=== PATIENT | male | born 1955 | race Caucasian/White ===

== ENCOUNTER 2017-07-15 11:06 | Emergency (ER) | payer SELFPAY ==
[~2017-07-15] VITALS: Ht 172.7 cm; Wt 136.4 kg
[2017-07-15 11:08] VITALS: BP 196/91; PULSE 80; RESP 16; TEMP 97.6; O2SAT 96
[2017-07-15] MEDS ORDERED: ASPI81TA23 PO (11:31)
[2017-07-15] MEDS ORDERED: GLIM2TAB PO (11:31)
[2017-07-15] MEDS ORDERED: ATOR40TA16 PO (11:31)
[2017-07-15] MEDS ORDERED: VENL100T PO ×2 (11:31)
[2017-07-15] MEDS ORDERED: AMLO5TAB2 PO (11:31)
[2017-07-15] MEDS ORDERED: METH36 PO (11:31)
[2017-07-15] MEDS ORDERED: ABIL10TA8 PO (11:31)
[2017-07-15] MEDS ORDERED: BUPR150CR PO (11:31)
[2017-07-15] MEDS ORDERED: LITH150C PO (11:31)
[2017-07-15] MEDS ORDERED: NEXI20CA PO (11:31)
[2017-07-15] MEDS ORDERED: METF500T PO (11:31)
[2017-07-15] MEDS ORDERED: BRIL90TA PO (11:31)
[2017-07-15] MEDS ORDERED: LEVEMIR SQ (11:31)
[2017-07-15] MEDS ORDERED: METO100T PO (11:31)
[2017-07-15] MEDS ORDERED: LOSA100T PO (11:31)
[2017-07-15] MEDS ORDERED: DOXY100C PO (12:13)
--- NOTE | 2017-07-15 12:13 | PD ---
HPI Chief Complaint: Laceration/Skin Injury Time Seen by Provider: 11:32 Travel History International Travel<30 days: No Contact w/Intl Traveler<30days: No Traveled to known affect area: No History of Present Illness HPI 61-year-old male here with a laceration to his right second toe. [place] cut the foot. He has mild discomfort in site of the laceration. He can freely wiggle the toes. Denies altered sensation. Tetanus immunization is up-to-date. Symptom severity is moderate. No aggravating or alleviating factors. PFSH Past Medical History Hx Anticoagulant Therapy: Yes (brilinta) Anxiety: Yes Depression: Yes Cardiac Catheterization: Yes High Cholesterol: Yes Coronary Artery Disease: Yes Diabetes: Yes Patient Takes Glucophage: Yes (07-15-17 0800) Diminished Hearing: No GERD: Yes Hypertension: Yes Neurologic: Yes Psychiatric: Yes Immunizations Current: Yes Tetanus Vaccination: < 5 Years Influenza Vaccination: Yes Past Surgical History Coronary Stent: Yes Social History Alcohol Use: Yes (occ) Tobacco Use: No Substance Use: No Allergies-Medications (Allergen,Severity, Reaction): Coded Allergies: No Known Allergies (Verified Allergy, Unknown, 07/15/17) Reported Meds & Prescriptions Reported Meds & Active Scripts Active Doxycycline Hyclate 100 Mg Cap 100 Mg PO BID Reported Britt Carbonate 150 Mg Cap 150 Mg PO BID Levemir Inj (Insulin Detemir) 1,000 unit/ 10 ML Vial 50 Units SQ BID Do not mix with any other Insulin. Brilinta (Ticagrelor) 90 Mg Tab 90 Mg PO BID Glimepiride 2 Mg Tab 2 Mg PO DAILY Take with breakfast or first main meal Nexium (Esomeprazole DR) 20 Mg Capdr 20 Mg PO DAILY Amlodipine (Amlodipine Besylate) 5 Mg Tab 5 Mg PO DAILY Atorvastatin (Atorvastatin Calcium) 40 Mg Tab 40 Mg PO HS Metoprolol Tartrate 100 Mg Tab 100 Mg PO DAILY Metformin (Metformin HCl) 500 Mg Tab 500 Mg PO DAILY With a meal Losartan (Losartan Potassium) 100 Mg Tab 100 Mg PO DAILY Aspirin EC (Aspirin) 81 Mg Tabdr 81 Mg PO DAILY Abilify (Aripiprazole) 10 Mg Tab 10 Mg PO DAILY Effexor (Venlafaxine HCl) 100 Mg Tab 100 Mg PO PM Effexor (Venlafaxine HCl) 100 Mg Tab 200 Mg PO AM Concerta (Methylphenidate HCl) 36 Mg Micah 72 Mg PO DAILY Wellbutrin SR 12 HR (Bupropion HCl) 150 Mg Tab 150 Mg PO Q12HR Review of Systems Except as stated in HPI: all other systems reviewed are Neg General / Constitutional: No: Fever Eyes: No: Visual changes HENT: No: Headaches Cardiovascular: No: Chest Pain or Discomfort Respiratory: No: Shortness of Breath Gastrointestinal: No: Abdominal Pain Genitourinary: No: Dysuria Physical Exam Narrative GENERAL: Alert and well-appearing 61-year-old male SKIN: Warm and dry. HEAD: Normocephalic. EYES: No scleral icterus. No injection or drainage. NECK: Supple, trachea midline. No JVD or lymphadenopathy. CARDIOVASCULAR: Regular rate and rhythm without murmurs, gallops, or rubs. RESPIRATORY: Breath sounds equal bilaterally. No accessory muscle use. GASTROINTESTINAL: Abdomen soft, non-tender, nondistended. MUSCULOSKELETAL: No cyanosis, or edema. Right foot: 1.5 cm laceration to the plantar aspect of the second digit. No tendon injury identified. No foreign body identified. Bleeding is well controlled. Able to flex and extend the toe without difficulty. Normal sensation distally. Brisk cap refill. Data Data Last Documented VS Vital Signs Date Time Temp Pulse Resp B/P (MAP) Pulse Ox O2 Delivery O2 Flow Rate FiO2 07/15/17 11:08 97.6 80 16 196/91 (126) 96 MDM Medical Decision Making Medical Screen Exam Complete: Yes Emergency Medical Condition: Yes Differential Diagnosis Toe laceration, tendon injury, retained foreign body Narrative Course 61-year-old male here with laceration to the right second toe. No tendon or vascular injury. Laceration repair performed. Patient tolerated procedure well. He will be put on prophylactic antibiotics [place] possible [place] exposure. Procedures Procedure Narrative LACERATION LOCATION: Right second toe LENGTH: 1.5 centimeters NUMBER OF STITCHES/LAN: 5 REPAIR: The area of the laceration was prepped with Betadine and sterilely draped. Digital block using 1% lidocaine. The wound was copiously irrigated and explored without evidence of foreign body, tendon injury or neurovascular injury. The wound was closed using 3-0 Ethilon. This was a single layer repair. A sterile dressing was applied. The patient was advised to keep the dressing clean and dry. Patient tolerated the procedure well. Diagnosis Primary Impression: Toe laceration Qualified Codes: S91.114A - Laceration without foreign body of right lesser toe(s) without damage to nail, initial encounter Referrals: Primary Care Physician Additional Instructions: Antibiotics as directed. Do not submerge the wound in water Follow-up with primary doctor for recheck in 2 days. Sutures need to be removed in 7-10 days. Scripts Doxycycline Hyclate (Doxycycline Hyclate) 100 Mg Cap 100 MG PO BID for Infection, #20 CAP 0 Refills Prov: Brandy Vera 07/15/17 Disposition: 01 DISCHARGE HOME Condition: Stable Brandy Vera July 15, 2017 12:13
== END 2017-07-15 12:24 | disposition home or self-care (01) ==
LOC: PHEFT 11:06
DX: S91.114A Laceration without foreign body of right lesser toe(s) without damage to nail, initial encounter (principal); F41.9 Anxiety disorder, unspecified; F32.9 Major depressive disorder, single episode, unspecified; E78.00 Pure hypercholesterolemia, unspecified; I25.10 Atherosclerotic heart disease of native coronary artery without angina pectoris; E11.9 Type 2 diabetes mellitus without complications; I10 Essential (primary) hypertension; K21.9 Gastro-esophageal reflux disease without esophagitis; W10.9XXA Fall (on) (from) unspecified stairs and steps, initial encounter
CPT/HCPCS: 12001